=== PATIENT | female | born 1960 | race African-American/Black ===

== ENCOUNTER 2018-12-25 11:23 | Inpatient (IN) ==
[2018-12-25] MEDS ORDERED: DEXTROSE 50% 25 GM/50 ML VIAL IV STA (11:33)
[2018-12-25] MEDS ORDERED: DEXTROSE 50% 25 GM/50 ML SYRINGE IV ONE ×2 (11:33→12:04)
[2018-12-25] MEDS ORDERED: SODIUM CHLORIDE 0.9% 1,000 ML IV STA ×2 (11:59→12:05)
[2018-12-25] MEDS ORDERED: DEXTROSE 50% 25 GM/50 ML VIAL IV ONE (12:04)
[2018-12-25] MEDS ORDERED: SODIUM CHLORIDE 0.9% 500 ML IV STA (12:05)
[2018-12-25 12:23] LABS: Bilirubin,Total 2.4 MG/DL (0.2-1.0); Osmolality,Calculated 274.8 MOS/KG (273-304); Potassium 4.3 MMOL/L (3.5-5.1); Total Protein 7.3 G/DL (6.4-8.3)
[2018-12-25] MEDS: DEXTROSE 5% NACL 0.45% 1,000 ML IV SCH (12:30)
[2018-12-25 13:49] LABS: Basophils % 0.1 % (0.0-0.8); Eosinophils % 0.1 % (0.00-10.9); Hematocrit 35.5 VOL% (35.7-47.0); Hemoglobin 10.8 GM/DL (12.0-16.0); Immature Granulocytes Absolute 0.28 #; Lymphocytes # 1.3 10*3/uL (1.4-4.0); Lymphocytes % 8.8 % (21.3-54.2); Mean Corpuscular HGB Conc 30.4 GM/DL (32-36); Mean Corpuscular Hemoglobin 31 PG (27-34); Mean Corpuscular Volume 100.9 FL (87-102); Mean Platelet Volume 12.5 FL (9.6-12.0); Monocytes # 0.7 10*3/uL (0.11-0.8); Monocytes % 4.6 % (1.7-12.7); Neutrophils % 84.4 % (38.7-73.9); Red Blood Count 3.52 MC/CUMM (3.8-5.5); Red Cell Distribution Width 19.3 % (9.3-17.3); White Blood Count 14.2 T/CUMM (4-12)
[2018-12-25 13:53] LABS: Platelet Count 57 T/CUMM (130-400)
[2018-12-25] MEDS ORDERED: ACETAMINOPHEN 325 MG TABLET PO PRN (14:46)
[2018-12-25] MEDS ORDERED: ONDANSETRON 4 MG/2 ML VIAL IV PRN (14:46)
[2018-12-25] MEDS ORDERED: SODIUM CHLORIDE 0.9% IV SCH (15:00)
[2018-12-25] MEDS ORDERED: DEXTROSE 5% IV SCH (15:00)
[2018-12-25 16:21] LABS: Hypochromasia Slight; Macrocytosis 1+; Platelet Estimate Decreased; Polychromasia Few
[2018-12-25] MEDS ORDERED: VANCOMYCIN INJ 750 MG in SODIUM CHLORIDE 0.9% 250 ML IV PRN (16:30)
[2018-12-25] MEDS ORDERED: AZTREONAM 2,000 MG in SYRINGE 1 EACH IV ONE (17:00)
[2018-12-25] MEDS ORDERED: VANCOMYCIN INJ 2,000 MG in SODIUM CHLORIDE 0.9% 500 ML IV ONE (17:00)
[2018-12-25 18:04] LABS: Apearance,Urine Slightly Hazy (Clear); Bilirubin,Urine Negative (Negative); Blood, Urine Small mg/dL (Negative); Glucose,Urine (UA) 50 mg/dL (Negative); Ketones,Urine Negative (Negative); Nitrite,Urine Negative (Negative); Protein,Urine >=500 MG/DL; RBC,Urine 5 /HPF (0-4); Squamous Epithelial Cell,Urine Occasional /HPF (0-10); Urine Color Amber (Yellow); Urine Specific Gravity 1.024 (1.001-1.035); Urine Urobilinogen < 2.0 EU/DL (0.2-1.0); WBC,Urine 5 /HPF (0-6)
[2018-12-25 18:51] LABS: Folate 4.4 NG/ML (5.4-24.0); Vitamin B12 1396 PG/ML (211-911)
[2018-12-25] MEDS ORDERED: GLUCAGON 1 MG VIAL IM PRN (20:40)
[2018-12-25 21:57] LABS: VBG Base Excess -12.8 MEQ/L (0-4); VBG HCO3 13.8 MEQ/L (24-28); VBG Oxygen Saturation 48.3 %; VBG PH 7.283; VBG PO2 35.1 MMHG (17-40)
[2018-12-25] MEDS: DEXTROSE 50% 25 GM/50 ML SYRINGE IV PRN (22:20)
[2018-12-25 22:22] LABS: Basophils % 0.2 % (0.0-0.8); Eosinophils % 0.1 % (0.00-10.9); Hematocrit 35.8 VOL% (35.7-47.0); Hemoglobin 10.9 GM/DL (12.0-16.0); Immature Granulocytes Absolute 0.32 #; Lymphocytes # 1.4 10*3/uL (1.4-4.0); Mean Corpuscular HGB Conc 30.4 GM/DL (32-36); Mean Corpuscular Hemoglobin 31 PG (27-34); Mean Corpuscular Volume 102.3 FL (87-102); Mean Platelet Volume 12.1 FL (9.6-12.0); Monocytes # 0.6 10*3/uL (0.11-0.8); Monocytes % 3.6 % (1.7-12.7); NRBC # 0.22 10*3/uL; Neutrophils # 13.5 10*3/uL (1.4-7.4); Neutrophils % 85.1 % (38.7-73.9); Platelet Count 59 T/CUMM (130-400); Red Cell Distribution Width 19.9 % (9.3-17.3); White Blood Count 15.9 T/CUMM (4-12)
[2018-12-25 22:45] LABS: Troponin I 0.345 NG/ML (0.00-0.045)
[2018-12-25 22:58] LABS: Albumin 1.8 G/DL (3.4-5.0); Bilirubin,Total 2.6 MG/DL (0.2-1.0); Calcium 8.2 MG/DL (8.5-10.1); Potassium 4.2 MMOL/L (3.5-5.1); Total Protein 6.9 G/DL (6.4-8.3)
[2018-12-25] MEDS ORDERED: LACTATED RINGERS 1,000 ML IV ONE (23:06)
[2018-12-25 23:15] LABS: Platelet Estimate Decreased
[2018-12-25 23:16] LABS: INR 2.1
[2018-12-25 23:16] LABS: Hypochromasia Slight; Macrocytosis 1+; Polychromasia Slight
[2018-12-25 23:21] LABS: PT Patient Result 22.4 SECS
[2018-12-26] MEDS ORDERED: LACTATED RINGERS 1,000 ML IV ONE (00:19)
[2018-12-26] MEDS: AZTREONAM 500 MG in SYRINGE 1 EACH IV SCH ×4 (00:30→17:15)
[2018-12-26] MEDS: DEXTROSE 5% NACL 0.45% 1,000 ML IV SCH ×3 (00:34→08:49)
[2018-12-26] MEDS ORDERED: LORazepam 2 MG/1 ML VIAL IV ONE (04:15)
[2018-12-26] MEDS ORDERED: LORazepam 2 MG/1 ML VIAL ONE (04:17)
[2018-12-26] MEDS: LEVOTHYROXINE 175 MCG TABLET PO SCH (06:02)
[2018-12-26 06:21] LABS: Troponin I 0.205 NG/ML (0.00-0.045)
[2018-12-26] MEDS: IPRATROPIUM 500 MCG/2.5 ML NEB RESP TX SCH ×4 (06:42→19:54)
[2018-12-26 07:50] LABS: Basophils % 0.1 % (0.0-0.8); Eosinophils % 0.1 % (0.00-10.9); Hematocrit 34.9 VOL% (35.7-47.0); Hemoglobin 10.9 GM/DL (12.0-16.0); Immature Granulocytes % 1.4 %; Immature Granulocytes Absolute 0.25 #; Lymphocytes # 1.1 10*3/uL (1.4-4.0); Lymphocytes % 6.1 % (21.3-54.2); Mean Corpuscular HGB Conc 31.2 GM/DL (32-36); Mean Corpuscular Hemoglobin 31 PG (27-34); Mean Corpuscular Volume 100.3 FL (87-102); Mean Platelet Volume 12.5 FL (9.6-12.0); Monocytes # 0.7 10*3/uL (0.11-0.8); Monocytes % 3.9 % (1.7-12.7); NRBC # 0.27 10*3/uL; Neutrophils # 15.6 10*3/uL (1.4-7.4); Neutrophils % 88.4 % (38.7-73.9); Red Blood Count 3.48 MC/CUMM (3.8-5.5); Red Cell Distribution Width 19.9 % (9.3-17.3); White Blood Count 17.6 T/CUMM (4-12)
[2018-12-26 08:07] LABS: Hypochromasia 1+; Platelet Count 54 T/CUMM (130-400); Platelet Estimate Decreased
[2018-12-26 08:08] LABS: Macrocytosis Slight; Polychromasia Slight
[2018-12-26 08:13] LABS: Albumin 1.8 G/DL (3.4-5.0); Bilirubin,Total 2.8 MG/DL (0.2-1.0); Calcium 8.3 MG/DL (8.5-10.1); Osmolality,Calculated 276.1 MOS/KG (273-304); Potassium 4.4 MMOL/L (3.5-5.1); Total Protein 6.8 G/DL (6.4-8.3)
[2018-12-26] MEDS: DOXEPIN 10 MG CAPSULE PO SCH ×2 (08:48→21:04)
[2018-12-26] MEDS: AZELASTINE NASAL 137 MCG/SPRAY 30 ML BOTTLE BOTH NARES SCH ×3 (08:48→22:57)
[2018-12-26] MEDS: SODIUM BICARB INJ 150 MEQ in DEXTROSE 5% 850 ML IV SCH (09:58)
[2018-12-26] MEDS: DEXTROSE 50% 25 GM/50 ML SYRINGE IV PRN ×2 (12:58→13:20)
[2018-12-26] MEDS ORDERED: FAMOTIDINE 20 MG/2 ML VIAL IV ONE (13:21)
[2018-12-26] MEDS ORDERED: diphenhydrAMINE 50 MG/1 ML VIAL IV ONE (13:21)
[2018-12-26] MEDS ORDERED: methylPREDNISolone SOD SUC 125 MG/2 ML VIAL IV ONE (13:21)
[2018-12-26] MEDS ORDERED: diphenhydrAMINE 50 MG/1 ML VIAL IV PRN (14:33)
[2018-12-26] MEDS: FAMOTIDINE INJ 40 MG in SODIUM CHLORIDE 0.9% 100 ML IV SCH (17:54)
[2018-12-26] MEDS: methylPREDNISolone SOD SUC 40 MG/1 ML VIAL IV SCH (20:57)
[2018-12-27] MEDS: AZTREONAM 500 MG in SYRINGE 1 EACH IV SCH ×4 (00:40→18:17)
[2018-12-27 04:54] LABS: Basophils % 0.2 % (0.0-0.8); Hematocrit 33.5 VOL% (35.7-47.0); Hemoglobin 10.8 GM/DL (12.0-16.0); Immature Granulocytes % 0.8 %; Immature Granulocytes Absolute 0.14 #; Lymphocytes # 1.1 10*3/uL (1.4-4.0); Lymphocytes % 6.5 % (21.3-54.2); Mean Corpuscular HGB Conc 32.2 GM/DL (32-36); Mean Corpuscular Hemoglobin 31 PG (27-34); Mean Corpuscular Volume 97.1 FL (87-102); Mean Platelet Volume 12.3 FL (9.6-12.0); Monocytes # 0.4 10*3/uL (0.11-0.8); Monocytes % 2.4 % (1.7-12.7); NRBC # 0.44 10*3/uL; Neutrophils # 15.4 10*3/uL (1.4-7.4); Neutrophils % 90.1 % (38.7-73.9); Platelet Count 50 T/CUMM (130-400); Red Blood Count 3.45 MC/CUMM (3.8-5.5); Red Cell Distribution Width 19.8 % (9.3-17.3); White Blood Count 17.1 T/CUMM (4-12)
[2018-12-27] MEDS: methylPREDNISolone SOD SUC 40 MG/1 ML VIAL IV SCH ×4 (04:55→21:41)
[2018-12-27 05:26] LABS: Potassium 4.3 MMOL/L (3.5-5.1)
[2018-12-27 05:46] LABS: Band Neutrophils 2 % (0-10); Lymphocytes 2 % (20-55); Nucleated Red Blood Cells 3 (0-5); Segmented Neutrophils 94 % (50-85); Total Cells Counted 100
[2018-12-27 05:47] LABS: Macrocytosis 1+; Polychromasia Slight; Target Cells Slight
[2018-12-27] MEDS: LEVOTHYROXINE 175 MCG TABLET PO SCH (05:47)
[2018-12-27 05:48] LABS: Platelet Estimate Decreased
[2018-12-27] MEDS: IPRATROPIUM 500 MCG/2.5 ML NEB RESP TX SCH ×4 (06:45→20:55)
[2018-12-27] MEDS: AZELASTINE NASAL 137 MCG/SPRAY 30 ML BOTTLE BOTH NARES SCH ×2 (09:48→21:41)
[2018-12-27] MEDS: FAMOTIDINE INJ 40 MG in SODIUM CHLORIDE 0.9% 100 ML IV SCH (10:00)
[2018-12-27] MEDS: LORazepam 2 MG/1 ML VIAL IV PRN ×2 (10:30→14:47)
[2018-12-27] MEDS: SODIUM BICARB INJ 150 MEQ in DEXTROSE 5% 850 ML IV SCH (12:17)
[2018-12-27] MEDS ORDERED: SODIUM CHLORIDE 0.9% 500 ML IV ONE (20:33)
[2018-12-27 20:52] LABS: Hematocrit 31.8 VOL% (35.7-47.0)
[2018-12-27] MEDS ORDERED: VANCOMYCIN INJ 750 MG in SODIUM CHLORIDE 0.9% 250 ML IV ONE (21:00)
[2018-12-27] MEDS: DOXEPIN 10 MG CAPSULE PO SCH (21:12)
[2018-12-27] MEDS: NOREPINEPHRINE 16 MG in SODIUM CHLORIDE 0.9% 234 ML IV PRN (22:17)
[2018-12-28] MEDS: DEXTROSE 50% 25 GM/50 ML SYRINGE IV PRN ×3 (00:32→15:55)
[2018-12-28] MEDS: AZTREONAM 500 MG in SYRINGE 1 EACH IV SCH ×5 (00:43→23:50)
[2018-12-28 02:37] LABS: Basophils % 0.1 % (0.0-0.8); Hematocrit 32.7 VOL% (35.7-47.0); Hemoglobin 10.2 GM/DL (12.0-16.0); Immature Granulocytes % 1.3 %; Immature Granulocytes Absolute 0.23 #; Lymphocytes # 1.3 10*3/uL (1.4-4.0); Lymphocytes % 7.6 % (21.3-54.2); Mean Corpuscular HGB Conc 31.2 GM/DL (32-36); Mean Corpuscular Hemoglobin 31 PG (27-34); Mean Corpuscular Volume 100.3 FL (87-102); Mean Platelet Volume 13.2 FL (9.6-12.0); Monocytes # 0.6 10*3/uL (0.11-0.8); Monocytes % 3.6 % (1.7-12.7); NRBC # 0.85 10*3/uL; Neutrophils # 15.4 10*3/uL (1.4-7.4); Neutrophils % 87.4 % (38.7-73.9); Red Blood Count 3.26 MC/CUMM (3.8-5.5); Red Cell Distribution Width 20.4 % (9.3-17.3); White Blood Count 17.6 T/CUMM (4-12)
[2018-12-28 02:39] LABS: Platelet Count 50 T/CUMM (130-400)
[2018-12-28 02:48] LABS: Calcium 7.6 MG/DL (8.5-10.1); Osmolality,Calculated 285.8 MOS/KG (273-304); Potassium 4.8 MMOL/L (3.5-5.1)
[2018-12-28 03:03] LABS: Platelet Estimate Decreased; Polychromasia Few
[2018-12-28] MEDS: methylPREDNISolone SOD SUC 40 MG/1 ML VIAL IV SCH ×4 (03:27→23:35)
[2018-12-28 05:12] LABS: ABG Base Excess -12.3 MMOL/L (-2.5-2.5); ABG HCO3 14.6 MMOL/L (20-26); ABG Oxygen Saturation 77.2 % (95-100); ABG PCO2 27.3 MM HG (35-48); ABG PH 7.291 (7.35-7.45); ABG PO2 52.6 MM HG (80-95)
[2018-12-28 05:58] LABS: ABG Base Excess -12.6 MMOL/L (-2.5-2.5); ABG HCO3 14.7 MMOL/L (20-26); ABG Oxygen Saturation 96.7 % (95-100); ABG PCO2 23.2 MM HG (35-48); ABG PH 7.326 (7.35-7.45)
[2018-12-28] MEDS: LEVOTHYROXINE 175 MCG TABLET PO SCH (06:07)
[2018-12-28] MEDS: IPRATROPIUM 500 MCG/2.5 ML NEB RESP TX SCH ×4 (07:01→19:41)
[2018-12-28] MEDS: AZELASTINE NASAL 137 MCG/SPRAY 30 ML BOTTLE BOTH NARES SCH ×2 (09:35→22:50)
[2018-12-28] MEDS: CIPROFLOXACIN INJ 400 MG in PREMIX 1 EACH IV SCH (11:00)
[2018-12-28] MEDS ORDERED: CALCIUM GLUCONATE 2,000 MG in SODIUM CHLORIDE 0.9% 100 ML IV ONE (12:00)
[2018-12-28] MEDS ORDERED: HEPARIN 5,000 UNIT/1 ML VIAL ONE (13:16)
[2018-12-28] MEDS ORDERED: TISSUE ADHESIVE 1 EACH APPLICATOR TOP ONE (13:16)
[2018-12-28] MEDS ORDERED: BUPIVACAINE 0.5% 50 ML VIAL ONE (13:16)
[2018-12-28] MEDS ORDERED: LIDOCAINE 1% 20 ML VIAL ONE (13:17)
[2018-12-28] MEDS ORDERED: SODIUM BICARBONATE 50 MEQ/50 ML SYRINGE IV ONE ×2 (14:06→14:57)
[2018-12-28] MEDS ORDERED: EPINEPHrine 1 MG/ML VIAL ONE (14:06)
[2018-12-28] MEDS ORDERED: NOREPINEPHRINE 4 MG/4 ML VIAL IV ONE ×3 (14:25→14:58)
[2018-12-28] MEDS ORDERED: SODIUM CHLORIDE 0.9% 250 ML IV ONE (14:25)
[2018-12-28] MEDS ORDERED: ROCURONIUM 100 MG/10 ML VIAL IV ONE (14:55)
[2018-12-28] MEDS ORDERED: PROPOFOL 200 MG/20 ML VIAL IV ONE (14:55)
[2018-12-28] MEDS ORDERED: ETOMIDATE 40 MG/20 ML VIAL IV ONE (14:55)
[2018-12-28] MEDS ORDERED: PHENYLEPHRINE 10 MG/1 ML VIAL IV ONE (14:56)
[2018-12-28] MEDS ORDERED: EPINEPHrine 1 MG/10 ML SYRINGE ONE (14:56)
[2018-12-28] MEDS ORDERED: PHENYLEPHRINE 1 MG/10 ML SYRINGE IV ONE (14:57)
[2018-12-28] MEDS ORDERED: MIDAZOLAM 10 MG/2 ML VIAL ONE (14:57)
[2018-12-28] MEDS ORDERED: methylPREDNISolone SOD SUC 125 MG/2 ML VIAL ONE (14:58)
[2018-12-28] MEDS ORDERED: fentaNYL 100 MCG/2 ML VIAL ONE (14:58)
[2018-12-28] MEDS ORDERED: SODIUM CHLORIDE 0.9% 300 ML IV ONE (14:58)
[2018-12-28] MEDS ORDERED: SEVOFLURANE 1 UNIT/15 MINUTE INH ONE (14:59)
[2018-12-28] MEDS ORDERED: SODIUM CHLORIDE 0.9% 500 ML IV ONE (14:59)
[2018-12-28] MEDS: PROPOFOL 1,000 MG/100 ML BOTTLE IV SCH (15:15)
[2018-12-28] MEDS ORDERED: PROPOFOL 1,000 MG/100 ML BOTTLE IV ONE (15:16)
[2018-12-28 16:03] LABS: Basophils % 0.1 % (0.0-0.8); Hematocrit 26.8 VOL% (35.7-47.0); Hemoglobin 8.1 GM/DL (12.0-16.0); Immature Granulocytes % 2.9 %; Immature Granulocytes Absolute 0.46 #; Lymphocytes # 1.2 10*3/uL (1.4-4.0); Lymphocytes % 7.4 % (21.3-54.2); Mean Corpuscular HGB Conc 30.2 GM/DL (32-36); Mean Corpuscular Hemoglobin 31 PG (27-34); Mean Corpuscular Volume 101.9 FL (87-102); Mean Platelet Volume 11.1 FL (9.6-12.0); Monocytes # 0.3 10*3/uL (0.11-0.8); Monocytes % 2.1 % (1.7-12.7); NRBC # 0.93 10*3/uL; Neutrophils # 14.1 10*3/uL (1.4-7.4); Neutrophils % 87.5 % (38.7-73.9); Red Blood Count 2.63 MC/CUMM (3.8-5.5); Red Cell Distribution Width 20.7 % (9.3-17.3); White Blood Count 16.1 T/CUMM (4-12)
[2018-12-28 16:06] LABS: Platelet Count 79 T/CUMM (130-400)
[2018-12-28 16:13] LABS: ABG Base Excess -13.3 MMOL/L (-2.5-2.5); ABG HCO3 13.7 MMOL/L (20-26); ABG Oxygen Saturation 99.1 % (95-100); ABG PCO2 35.8 MM HG (35-48); ABG PO2 252.5 MM HG (80-95); ABG TCO2 14.8 MMOL/L (23-27)
[2018-12-28 16:15] LABS: ABG PH 7.201 (7.35-7.45)
[2018-12-28 16:22] LABS: Band Neutrophils 6 % (0-10); Lymphocytes 6 % (20-55); Nucleated Red Blood Cells 2 (0-5); Segmented Neutrophils 85 % (50-85); Total Cells Counted 100
[2018-12-28 16:23] LABS: Anisocytosis 1+; Burr Cells Few; Hypochromasia 1+; Poikilocytosis 1+; Polychromasia 1+; Target Cells Few
[2018-12-28 16:24] LABS: Schistocytes Few
[2018-12-28] MEDS: SODIUM BICARB INJ 150 MEQ in DEXTROSE 5% 850 ML IV SCH (16:31)
[2018-12-28 16:49] LABS: Alanine Aminotransferase 36 U/L (13-56); Albumin 1.7 G/DL (3.4-5.0); Alkaline Phosphatase 198 U/L (45-117); Aspartate Amino Transferase 90 U/L (0-37); Blood Urea Nitrogen 56 MG/DL (7-18); Calcium 7.7 MG/DL (8.5-10.1); Glucose 221 MG/DL (74-106); Osmolality,Calculated 301.4 MOS/KG (273-304); Potassium 4.6 MMOL/L (3.5-5.1); Sodium 140 MMOL/L (136-145); Total Protein 5.1 G/DL (6.4-8.3)
[2018-12-28] MEDS ORDERED: SODIUM CHLORIDE 0.9% 1,000 ML IV PRN ×4 (16:57→19:10)
[2018-12-28 17:05] LABS: INR 3.5
[2018-12-28 17:07] LABS: PT Patient Result 38.1 SECS; Partial Thromboplastin Time 49.8 SECS (0-40)
[2018-12-28] MEDS ORDERED: DESMOPRESSIN 4 MCG/1 ML AMP SUBCUT ONE (20:00)
[2018-12-28] MEDS ORDERED: HEPARIN 10,000 UNIT/10 ML VIAL IV SCH (20:30)
[2018-12-28 22:36] LABS: ABG Base Excess -4.3 MMOL/L (-2.5-2.5); ABG HCO3 20.8 MMOL/L (20-26); ABG Oxygen Saturation 99.5 % (95-100); ABG PCO2 34.7 MM HG (35-48); ABG PH 7.375 (7.35-7.45); ABG TCO2 18.7 MMOL/L (23-27); Basophils % 0.2 % (0.0-0.8); Hematocrit 28.3 VOL% (35.7-47.0); Hemoglobin 8.8 GM/DL (12.0-16.0); Immature Granulocytes % 2.1 %; Immature Granulocytes Absolute 0.32 #; Lymphocytes # 0.9 10*3/uL (1.4-4.0); Lymphocytes % 5.7 % (21.3-54.2); Mean Corpuscular HGB Conc 31.1 GM/DL (32-36); Mean Corpuscular Hemoglobin 31 PG (27-34); Mean Corpuscular Volume 98.3 FL (87-102); Mean Platelet Volume 10.5 FL (9.6-12.0); Monocytes # 0.6 10*3/uL (0.11-0.8); NRBC # 0.97 10*3/uL; Neutrophils # 13.7 10*3/uL (1.4-7.4); Red Blood Count 2.88 MC/CUMM (3.8-5.5); Red Cell Distribution Width 19.3 % (9.3-17.3); White Blood Count 15.6 T/CUMM (4-12)
[2018-12-28 22:37] LABS: Platelet Count 102 T/CUMM (130-400)
[2018-12-28 22:51] LABS: Alanine Aminotransferase 43 U/L (13-56); Albumin 2.5 G/DL (3.4-5.0); Alkaline Phosphatase 196 U/L (45-117); Aspartate Amino Transferase 112 U/L (0-37); Blood Urea Nitrogen 39 MG/DL (7-18); Calcium 8.2 MG/DL (8.5-10.1); Glucose 133 MG/DL (74-106); INR 1.9; Osmolality,Calculated 287.5 MOS/KG (273-304); PT Patient Result 20.5 SECS; Potassium 4.6 MMOL/L (3.5-5.1); Sodium 139 MMOL/L (136-145); Total Protein 6.5 G/DL (6.4-8.3)
[2018-12-28 22:55] LABS: Partial Thromboplastin Time 57.2 SECS (0-40)
[2018-12-28] MEDS: DOXEPIN 10 MG CAPSULE PO SCH (23:35)
[2018-12-29] MEDS ORDERED: NOREPINEPHRINE 4 MG/4 ML VIAL IV ONE (03:06)
[2018-12-29] MEDS: NOREPINEPHRINE 16 MG in SODIUM CHLORIDE 0.9% 234 ML IV PRN ×2 (03:11→17:35)
[2018-12-29 05:35] LABS: ABG Base Excess -5.9 MMOL/L (-2.5-2.5); ABG HCO3 19.6 MMOL/L (20-26); ABG Oxygen Saturation 99.8 % (95-100); ABG PCO2 31.6 MM HG (35-48); ABG PH 7.373 (7.35-7.45); ABG TCO2 16.5 MMOL/L (23-27)
[2018-12-29 05:44] LABS: INR 1.7; PT Patient Result 18.7 SECS
[2018-12-29 05:45] LABS: Basophils % 0.1 % (0.0-0.8); Hematocrit 33.4 VOL% (35.7-47.0); Immature Granulocytes % 2.1 %; Lymphocytes # 0.8 10*3/uL (1.4-4.0); Lymphocytes % 5.3 % (21.3-54.2); Mean Corpuscular HGB Conc 31.7 GM/DL (32-36); Mean Corpuscular Hemoglobin 30 PG (27-34); Mean Corpuscular Volume 94.4 FL (87-102); Mean Platelet Volume 11.9 FL (9.6-12.0); Monocytes # 0.6 10*3/uL (0.11-0.8); Monocytes % 3.9 % (1.7-12.7); NRBC # 1.01 10*3/uL; Neutrophils # 12.7 10*3/uL (1.4-7.4); Neutrophils % 88.6 % (38.7-73.9); Red Cell Distribution Width 18.6 % (9.3-17.3); White Blood Count 14.4 T/CUMM (4-12)
[2018-12-29 05:50] LABS: Hemoglobin 10.6 GM/DL (12.0-16.0); Red Blood Count 3.54 MC/CUMM (3.8-5.5)
[2018-12-29 05:51] LABS: Platelet Count 88 T/CUMM (130-400)
[2018-12-29 05:52] LABS: Albumin 2.4 G/DL (3.4-5.0); Bilirubin,Total 4.6 MG/DL (0.2-1.0); Potassium 4.6 MMOL/L (3.5-5.1); Total Protein 6.6 G/DL (6.4-8.3)
[2018-12-29 06:05] LABS: Partial Thromboplastin Time 31.3 SECS (0-40)
[2018-12-29] MEDS: PROPOFOL 1,000 MG/100 ML BOTTLE IV SCH ×3 (06:29→22:11)
[2018-12-29] MEDS: AZTREONAM 500 MG in SYRINGE 1 EACH IV SCH ×3 (07:29→17:30)
[2018-12-29] MEDS: methylPREDNISolone SOD SUC 40 MG/1 ML VIAL IV SCH (07:30)
[2018-12-29] MEDS: LEVOTHYROXINE 175 MCG TABLET PO SCH (07:30)
[2018-12-29] MEDS: IPRATROPIUM 500 MCG/2.5 ML NEB RESP TX SCH ×4 (08:02→20:03)
[2018-12-29] MEDS: CIPROFLOXACIN INJ 400 MG in PREMIX 1 EACH IV SCH (10:27)
[2018-12-29] MEDS: AZELASTINE NASAL 137 MCG/SPRAY 30 ML BOTTLE BOTH NARES SCH ×2 (10:28→22:09)
[2018-12-29 11:03] LABS: Basophils % 0.3 % (0.0-0.8); Hematocrit 36.3 VOL% (35.7-47.0); Immature Granulocytes % 1.6 %; Immature Granulocytes Absolute 0.22 #; Lymphocytes # 0.5 10*3/uL (1.4-4.0); Lymphocytes % 3.6 % (21.3-54.2); Mean Corpuscular HGB Conc 33.1 GM/DL (32-36); Mean Corpuscular Hemoglobin 30 PG (27-34); Mean Corpuscular Volume 91.7 FL (87-102); Mean Platelet Volume 11.7 FL (9.6-12.0); Monocytes # 0.5 10*3/uL (0.11-0.8); Monocytes % 3.3 % (1.7-12.7); NRBC # 1.43 10*3/uL; Neutrophils # 12.9 10*3/uL (1.4-7.4); Neutrophils % 91.2 % (38.7-73.9); Platelet Count 80 T/CUMM (130-400); Red Blood Count 3.96 MC/CUMM (3.8-5.5); Red Cell Distribution Width 19.4 % (9.3-17.3); White Blood Count 14.1 T/CUMM (4-12)
[2018-12-29 11:10] LABS: INR 1.6; PT Patient Result 17.1 SECS; Partial Thromboplastin Time 29.6 SECS (0-40)
[2018-12-29 11:21] LABS: Band Neutrophils 2 % (0-10); Hypochromasia 1+; Lymphocytes 1 % (20-55); Nucleated Red Blood Cells 9 (0-5); Polychromasia Slight; Segmented Neutrophils 93 % (50-85); Total Cells Counted 100
[2018-12-29 11:22] LABS: Anisocytosis 1+; Microcytosis 1+; Platelet Estimate Decreased; Target Cells Slight
[2018-12-29] MEDS ORDERED: VANCOMYCIN INJ 750 MG in SODIUM CHLORIDE 0.9% 250 ML IV ONE (15:00)
[2018-12-29] MEDS: DEXTROSE 50% 25 GM/50 ML SYRINGE IV PRN ×2 (16:05→22:09)
[2018-12-29] MEDS: SODIUM BICARB INJ 150 MEQ in DEXTROSE 5% 850 ML IV SCH (17:31)
[2018-12-29] MEDS: DOXEPIN 10 MG CAPSULE PO SCH (22:09)
[2018-12-30] MEDS: AZTREONAM 500 MG in SYRINGE 1 EACH IV SCH ×3 (00:35→12:27)
[2018-12-30 03:31] LABS: ABG Base Excess -13.6 MMOL/L (-2.5-2.5); ABG Oxygen Saturation 94.3 % (95-100); ABG PCO2 23.5 MM HG (35-48); ABG PO2 88.2 MM HG (80-95); ABG TCO2 10.5 MMOL/L (23-27)
[2018-12-30 03:34] LABS: Basophils % 0.3 % (0.0-0.8); Eosinophils % 0.1 % (0.00-10.9); Hematocrit 34.9 VOL% (35.7-47.0); Hemoglobin 10.8 GM/DL (12.0-16.0); Immature Granulocytes % 3.4 %; Immature Granulocytes Absolute 0.47 #; Lymphocytes # 1.2 10*3/uL (1.4-4.0); Lymphocytes % 8.8 % (21.3-54.2); Mean Corpuscular HGB Conc 30.9 GM/DL (32-36); Mean Corpuscular Hemoglobin 30 PG (27-34); Mean Corpuscular Volume 97.8 FL (87-102); Monocytes # 0.6 10*3/uL (0.11-0.8); Monocytes % 4.4 % (1.7-12.7); Neutrophils # 11.4 10*3/uL (1.4-7.4); Red Blood Count 3.57 MC/CUMM (3.8-5.5); Red Cell Distribution Width 20.8 % (9.3-17.3); White Blood Count 13.7 T/CUMM (4-12)
[2018-12-30 03:37] LABS: Platelet Count 53 T/CUMM (130-400)
[2018-12-30] MEDS ORDERED: PHENYLEPHRINE DRIP 40 MG/250 ML PREMIX IV ONE (03:41)
[2018-12-30] MEDS: PHENYLEPHRINE DRIP 40 MG/250 ML PREMIX IV PRN ×2 (03:44→07:29)
[2018-12-30] MEDS ORDERED: SODIUM BICARBONATE 50 MEQ/50 ML SYRINGE IV ONE ×3 (03:46→06:21)
[2018-12-30] MEDS: DEXTROSE 50% 25 GM/50 ML SYRINGE IV PRN ×2 (03:53→06:00)
[2018-12-30 03:56] LABS: Calcium 8.1 MG/DL (8.5-10.1); Osmolality,Calculated 270.4 MOS/KG (273-304); Potassium 5.5 MMOL/L (3.5-5.1)
[2018-12-30 04:57] LABS: Lymphocytes 8 % (20-55); Nucleated Red Blood Cells 19 (0-5); Segmented Neutrophils 88 % (50-85)
[2018-12-30 04:58] LABS: Hypochromasia Slight; Platelet Estimate Decreased; Target Cells Few
[2018-12-30 04:59] LABS: Polychromasia Few; Total Cells Counted 100
[2018-12-30] MEDS ORDERED: DOPamine 800 MG/250 ML PREMIX IV PRN (05:50)
[2018-12-30] MEDS ORDERED: SODIUM CHLORIDE 0.9% 500 ML IV ONE (05:50)
[2018-12-30] MEDS ORDERED: NOREPINEPHRINE 4 MG/4 ML VIAL IV ONE (05:52)
[2018-12-30 06:07] LABS: ABG Base Excess -16.5 MMOL/L (-2.5-2.5); ABG Oxygen Saturation 98.8 % (95-100); ABG PCO2 27.2 MM HG (35-48); ABG TCO2 9.9 MMOL/L (23-27)
[2018-12-30 06:10] LABS: ABG PH 7.197 (7.35-7.45)
[2018-12-30] MEDS ORDERED: DOBUTamine 500 MG/250 ML PREMIX IV PRN (06:20)
[2018-12-30] MEDS: LEVOTHYROXINE 175 MCG TABLET PO SCH (06:40)
[2018-12-30 06:59] LABS: CKMB % 5.1 %
[2018-12-30 07:02] LABS: Troponin I 3.27 NG/ML (0.00-0.045)
[2018-12-30] MEDS: NOREPINEPHRINE 16 MG in SODIUM CHLORIDE 0.9% 234 ML IV PRN (07:04)
[2018-12-30] MEDS: IPRATROPIUM 500 MCG/2.5 ML NEB RESP TX SCH ×2 (08:15→12:48)
[2018-12-30 08:57] VITALS: BP 118/45
[2018-12-30] MEDS: SODIUM BICARB INJ 150 MEQ in DEXTROSE 5% 850 ML IV SCH (11:11)
[2018-12-30] MEDS: AZELASTINE NASAL 137 MCG/SPRAY 30 ML BOTTLE BOTH NARES SCH (11:21)
[2018-12-30] MEDS: CIPROFLOXACIN INJ 400 MG in PREMIX 1 EACH IV SCH (11:21)
== END 2018-12-30 09:40 | disposition expired | DRG 853 ==
LOC: EDBD → EDUNIT# → N.ED 11:23 → SUATTDRO 14:46 → N.EDINP 14:46 → N.2E 19:22 → N.ICU 22:49
PROVIDERS: ADMIT Internal Medicine; ATTEND Internal Medicine